=== PATIENT | male | born 1995 | race Caucasian/White ===

== ENCOUNTER 2020-12-06 09:28 | Outpatient (CLI) | payer BC, SELFPAY ==
--- NOTE | ~2020-12-06 | US_ITS ---
US right upper quadrant INDICATION: Right upper quadrant pain PROCEDURE: Realtime right upper abdominal ultrasound. COMPARISON: No prior studies for comparison. FINDINGS: The pancreas is normal without focal mass or pancreatic ductal dilation. Liver echotexture is normal without focal mass or intrahepatic biliary dilatation. There is normal directional flow i n the portal vein. The gallbladder is normal without stones, gallbladder wall thickening or pericholecystic fluid. Comm on bile duct measures 5 mm. No sonographic Epps's sign. IMPRESSION: 1: Normal limited abdominal ultrasound. Reviewed, dictated and finalized at location B.
== END 2020-12-06 09:29 | disposition home or self-care (01) ==
LOC: ANHIMG 09:36
PROVIDERS: PCP Family Medicine; Visit Provider Physician Assistant
DX: R10.11 Right upper quadrant pain (principal)
CPT/HCPCS: 76705

== ENCOUNTER 2020-12-25 09:14 | Emergency (ER) | payer BC, SELFPAY ==
--- NOTE | ~2020-12-25 | XR_ITS ---
XR chest 2V DATE: 12/25/2020 09:38 INDICATION: Sternal chest pain and chest tightness TECHNIQUE: PA and lateral views COMPARISON: None FINDINGS: Normal heart size. No hilar or mediastinal enlargement. The lungs are normally inflated and clear of infiltrate or consolidation. No pleural effusion or pulmonary vascular congestion or pneumo thorax. Minimal dextroscoliosis of the thoracic spine. IMPRESSION: No active cardiopulmonary disease Reviewed, dictated and finalized at location B.
[2020-12-25 09:25] VITALS: BP 154/88; PULSE 112; RESP 14; TEMP 37.6; O2SAT 100
--- NOTE | 2020-12-25 09:25 | ECG_ITS ---
Measurements Intervals [place] Rate: 112 P: 71 NV: 166 QRS: -1 QRSD: 118 T: 30 QT: 282 QTc: 386 Interpretive Statements SINUS TACHYCARDIA POSSIBLE LEFT ATRIAL ENLARGEMENT INCOMPLETE RIGHT BUNDLE BRANCH BLOCK POSSIBLE LEFT VENTRICULAR HYPERTROPHY BORDERLINE ST-T WAVE ABNORMALITY- ANTERIOR LEADS BASELINE ARTIFACT- I, II, III, AVR, AVL, AVF, V2 ABNORMAL ECG Electronically Signed On 12-25-2020 9:28:37 CDT by Jerome León D.O.
[2020-12-25 09:46] LABS: Basophils Absolute Auto 0.1 K/mm3 (0.0-0.1); Basophils Percent Auto 0.5 % (0.2-1.2); Eosinophils Percent Auto 0.3 % (0-4.4); Hematocrit 46.6 % (42.0-52.0); Hemoglobin 16.4 g/dL (14.0-18.0); Immature Granulocyte Absolute 0.03 K/mm3 (0.00-0.031); Immature Granulocyte Percent A 0.3 % (0-0.5); Lymphocytes Absolute Auto 1.67 K/mm3 (0.9-3.2); Lymphocytes Percent Auto 16.5 % (18.3-44.2); Mean Corpuscular HGB Conc 35.2 g/dl (32-36); Mean Corpuscular Hemoglobin 29.4 pg (26-34); Mean Corpuscular Volume 83.5 fl (80-100); Mean Platelet Volume 11.1 fl (7.4-10.4); Monocytes Absolute Auto 0.6 K/mm3 (0.1-0.6); Monocytes Percent Auto 5.6 % (2.6-8.5); Neutrophils Absolute Auto 7.8 K/mm3 (1.3-6.7); Neutrophils Percent Auto 76.8 % (45.5-73.1); Platelet Count Result 258 k/mm3 (150-375); Red Blood Count 5.58 M/mm3 (4.6-6.20); Red Cell Distribution Width 11.9 % (11.5-14.5); White Blood Count 10.1 K/mm3 (4.5-10.0)
--- NOTE | 2020-12-25 10:10 | ED.SOB ---
HPI - SOB/Dyspnea General Chief Complaint: Shortness of Breath/Dyspnea Stated Complaint: SOB,CP Time Seen by Provider: 12/25/20 09:24 Source: patient and family Mode of arrival: ambulatory Limitations: no limitations History of Present Illness HPI Narrative: This is a 25-year-old male that presents to the emergency department for shortness of breath and chest tightness since this morning. Reports this had been ongoing for hours. It has mostly resolved now. He was feeling short of breath and also had some tightness in the center of his chest and in his left arm. Reports yesterday he was having trouble with reflux and gas. He took some Pepcid yesterday with some relief in his discomfort. Over the last month he has been seeing his primary doctor for episodes of right upper quadrant pain. He had a right upper quadrant ultrasound that was reportedly normal. Does report history of anxiety. He is not currently on any medication for this. Denies fever, cough, vomiting, or lower extremity edema. Related Data Home Medications Medication Instructions Recorded Confirmed No Home Medications 12/25/20 12/25/20 Allergies Allergy/AdvReac Type Severity Reaction Status Date / Time acyclovir Allergy Mild Unknown Verified 12/25/20 09:24 Review of Systems Review of Systems: Narrative: CONSTITUTIONAL: Denies fever ENT: Denies congestion, sore throat CARDIOVASCULAR: Reports chest pain. Denies edema. RESPIRATORY: Reports dyspnea. Denies cough GASTROINTESTINAL: Denies abdominal pain, nausea, vomiting All systems reviewed & are unremarkable except as noted in HPI and below PMFSH Past Medical History Medical History (Updated 12/25/20 @ 14:54 by Breana Glaser PA-C) History of anxiety History of pyloric stenosis Social History Social History (Updated 12/25/20 @ 10:15 by Breana Glaser PA-C) Smoking status: Never smoker Substance use: never Exam Narrative: Exam Narrative: GENERAL: Well-appearing, well-nourished, and in no acute distress. HEAD: Normocephalic, atraumatic. EYES: EOMI. ENT: Nares clear, no rhinorrhea or epistaxis. Mucous membranes moist. Oropharynx without tonsillar hypertrophy exudate or other lesions. NECK: Supple. No adenopathy or masses. CHEST: Clear to auscultation. No respiratory distress. No wheezes rales or rhonchi HEART: Regular rate and rhythm. No murmur heard. Normal peripheral pulses. ABDOMEN: Soft, nontender, nondistended, normal active bowel sounds. EXTREMITIES: Normal range of motion. No edema. SKIN: Warm, dry, no rash. NEURO: No focal deficits. Alert and oriented x3. PSYCH: Normal mood and affect Course Vital Signs Vital signs: Vital Signs Temperature 99.7 F H 12/25/20 09:25 Pulse Rate 112 H 12/25/20 09:25 Respiratory Rate 14 12/25/20 09:25 Blood Pressure 154/88 H 12/25/20 09:25 Pulse Oximetry 100 12/25/20 09:25 Temperature 99.7 F H 12/25/20 09:25 Pulse Rate 101 H 12/25/20 10:23 Respiratory Rate 18 12/25/20 10:23 Blood Pressure 147/93 H 12/25/20 10:23 Pulse Oximetry 99 12/25/20 10:23 MDM - SOB/Dyspnea MDM Narrative Medical decision making narrative: Patient presents to the emergency department for shortness of breath with associated chest tightness this morning. Mostly relieved on arrival to the ED. Reports improvement in his discomfort with Protonix. Has been having upper abdominal discomfort over the last month and been following with his primary for this. He recently had a right upper quadrant ultrasound that was normal. Has been taking Pepcid daily. He is afebrile and nontoxic-appearing. Tachycardic upon arrival, this normalized without intervention. Oxygen saturation has remained normal on room air. CBC is without concerning leukocytosis. Metabolic panel without concerning findings. Lipase is normal. EKG with nonspecific ST changes. Baseline and 3-hour troponin are negative. D-dimer is not elevated. Chest x-ray without acute cardiopulmon
[2020-12-25 10:14] VITALS: O2SAT 100
[2020-12-25] MEDS: PANTOPRAZOLE SODIUM IV 40 MG VIAL IV PUSH (10:21)
[2020-12-25 10:23] VITALS: BP 147/93; PULSE 101; RESP 18; O2SAT 99
[2020-12-25 10:43] LABS: Alanine Aminotransferase 22 U/L (4-50); Albumin Level 5.2 g/dL (3.5-5.1); Alkaline Phosphatase 53 U/L (38-126); Anion Gap 15 mmol/L (8-16); Aspartate Amino Transferase 30 U/L (17-59); Bilirubin,Total 0.9 mg/dL (0.2-1.3); Blood Urea Nitrogen 10 mg/dL (9-20); Calcium 10.1 mg/dL (8.4-10.2); Carbon Dioxide 26 mmol/L (22-30); Chloride 100 mmol/L (98-107); Estimated CRCL calculation 114 ml/min; Estimated Glomerular Filt Rate > 60; Glucose 112 mg/dL (75-110); Lipase 42 U/L (23-300); Potassium 3.5 mmol/L (3.4-5.0); Sodium 141 mmol/L (137-145)
[2020-12-25 10:55] LABS: Troponin I < 0.012 ng/mL (0.000-0.034)
[2020-12-25 11:24] LABS: INR 1.1; Prothrombin Time 13.6 Seconds (11.1-14.7)
[2020-12-25 11:26] LABS: Partial Thromboplastin Time 30.9 SECONDS (22.3-36.8)
[2020-12-25 11:33] LABS: D Dimer 0.26 ug/mL (<0.48)
[2020-12-25 14:00] LABS: Troponin I < 0.012 ng/mL (0.000-0.034)
[2020-12-25 15:21] VITALS: BP 146/82; PULSE 93; RESP 16; O2SAT 100
== END 2020-12-25 15:22 | disposition home or self-care (01) ==
PROVIDERS: Physician Assistant; Emergency Provider Emergency Medicine; PCP Family Medicine
DX: R07.9 Chest pain, unspecified (principal)
CPT/HCPCS: 36415; 71046; 80048; 80076; 83690; 84484; 85025; 85380; 85610; 85730; 93005; 96374; 99284; C9113

== ENCOUNTER 2023-06-17 18:49 | Emergency (ER) | payer SELFPAY ==
[2023-06-17 19:42] VITALS: BP 148/76; PULSE 87; RESP 16; TEMP 37.1; O2SAT 100
--- NOTE | 2023-06-17 19:44 | ED.URI ---
HPI - URI/Sore Throat General Chief Complaint: Upper Respiratory Infection Stated Complaint: sorethroat,congestion Time Seen by Provider: 06/17/23 19:58 Source: patient, RN notes reviewed and old records reviewed Mode of arrival: ambulatory Limitations: no limitations History of Present Illness HPI Narrative: 28-year-old male presents to the [facility] with sore throat x3 days. Reports a runny nose. States he has taken some type of decongestant this morning. States he has had similar symptoms about 3 weeks ago. Related Data Home Medications Medication Instructions Recorded Confirmed omeprazole 20 mg capsule,delayed 20 mg PO DAILY 06/17/23 06/17/23 release Allergies Allergy/AdvReac Type Severity Reaction Status Date / Time acyclovir AdvReac Mild Hives Verified 06/17/23 19:37 Review of Systems Review of Systems: All systems reviewed & are unremarkable except as noted in HPI and below Constitutional: Constitutional: Reports no additional constitutional complaints Eyes: Eyes: Reports no additional eye complaints ENT: Reports as per HPI, Reports headache(s), Reports nasal discharge (Rhinorrhea) and Reports sore throat Cardiovascular: Cardiovascular: Reports no additional cardiovascular complaints, Denies chest pain and Denies dyspnea Respiratory: Respiratory: Reports no additional respiratory complaints, Denies chest congestion, Denies cough and Denies dyspnea Gastrointestinal: Gastrointestinal: Reports no additional gastrointestinal complaints, Denies abdominal pain, Denies nausea and Denies vomiting Musculoskeletal: Musculoskeletal: Reports no additional musculoskeletal complaints Integumentary/Breasts: Skin/Breast: Reports system reviewed and no additional complaints, except as docu Neurologic: Reports system reviewed and no additional complaints, except as documented Psychiatric: Psychiatric: Reports no additional psychiatric complaints Allergic/Immunologic: Allergic/Immunologic: Reports no additional allergic/immunologic complaints [facility] Past Medical History Medical History History of anxiety History of pyloric stenosis Social History Social History Smoking status: Never smoker Substance use: never Comments At the time of my signature, I reviewed and agree with the nursing past medical, surgical, social, and family history. There is no relevant family history pertinent to the patient complaint. Exam Const: General: cooperative, healthy appearing, comfortable, no acute distress, well developed, alert and well nourished Nutritional Appearance: well nourished Orientation/consciousness: patient oriented x3 Limitations: no limitations HENMT: Head: normal to inspection Ears: hearing grossly normal bilaterally, external ears normal, TM's normal bilaterally, EAC's normal, mastoids normal and no periauricular adenopathy Face/Nose/Sinus: Normal external nose present, Normal nares present, Normal nasal mucous membranes and turbinates present, No nasal discharge present, normal facial exam, sinuses nontender and face symmetric Face and sinus: normal facial exam and face symmetric Mouth: Yes Normal oral and palatal mucosa present, Yes lip normal and Yes moist mucous membranes Throat: posterior oropharynx normal, uvula midline, postnasal drainage and no uvular edema Eyes: General: appearance normal, both eyes and all related structures Alignment and Position: alignment normal Periorbital: periorbital findings normal Pupils: Equal, round and reactive pupils present EOM: EOMs intact bilaterally Neck: Neck: normal visual inspection, full ROM, no lymphadenopathy and no meningeal signs Chest: Chest palpation & inspection: normal inspection of the chest Resp: Effort & Inspection: normal respiratory effort and able to speak in complete sentences Auscultation: clear to auscultation bilaterally, no c
== END 2023-06-17 20:35 | disposition home or self-care (01) ==
PROVIDERS: Emergency Provider Nurse Practitioner; PCP Family Medicine
DX: B34.9 Viral infection, unspecified (principal)
CPT/HCPCS: 87081; 87880; 99213; G0463